=== PATIENT | male | born 1955 | race African-American/Black ===

== ENCOUNTER 2021-04-19 11:56 | Inpatient (IN) | payer OTHER ==
[2021-04-19] VITALS (9 sets, daily range): BP systolic 96–129; BP diastolic 56–87
[~2021-04-19] VITALS: Ht 177.8 cm; Wt 59.0 kg
[2021-04-19 12:35] LABS: HEMATOCRIT. 37.8 % (42.0-52.0); HEMOGLOBIN. 12.2 g/dL (14.0-18.0); MEAN CORPUSCULAR HEMOGLOBIN 29.1 pg (28.0-32.0); MEAN CORPUSCULAR VOLUME 89.8 fL (80.0-94.0); MEAN PLATELET VOLUME 9.8 fl (7.4-10.4); PLATELET 178 x1000/uL (130-400); RED BLOOD CELL COUNT 4.21 mill/uL (4.7-6.1); RED CELL DISTRIBUTION WIDTH 12.8 % (11.6-14.6)
[2021-04-19 12:44] LABS: CHLORIDE 93 mEq/L (98-107)
[2021-04-19 12:49] LABS: ETHANOL BLOOD < 10 mg/dL
[2021-04-19] MEDS ORDERED: SODIUM CHLORIDE 0.9% 1,000 ML IV ONE (13:00)
[2021-04-19] MEDS ORDERED: INSULIN REGULAR (HUMULIN R) 300UNITS/3ML VIAL SUBCUT NR (13:00)
[2021-04-19 13:09] LABS: PLATELET ESTIMATE NORMAL
[2021-04-19] MEDS ORDERED: LEVETIRACETAM 500MG PREMIX 100 ML IV ONE (14:15)
[2021-04-19 14:54] LABS: INR 0.9
[2021-04-19 15:02] LABS: CLARITY URINE CLEAR (CLEAR); COLOR URINE YELLOW (YELLOW); KETONES URINE TRACE (NEGATIVE); LEUKOCYTE ESTERASE URINE NEGATIVE (NEGATIVE); NITRITE URINE NEGATIVE (NEGATIVE); OCCULT BLOOD URINE NEGATIVE (NEGATIVE); PROTEIN URINE NEGATIVE (NEGATIVE); SPECIFIC GRAVITY URINE 1.033 (1.005-1.030); UROBILINOGEN URINE 0.2 E.U./dL (0.2-1.0)
[2021-04-19 15:23] LABS: *BARBITURATES SCREEN URINE NEGATIVE (NEGATIVE); *BENZODIAZEPINES SCREEN URINE NEGATIVE (NEGATIVE); *COCAINE SCREEN URINE PRESUMTIVE POSITIVE (NEGATIVE); METHADONE URINE SCREEN NEGATIVE (NEGATIVE)
[2021-04-19 15:24] LABS: *AMPHETAMINES SCREEN URINE NEGATIVE (NEGATIVE); CANNABINOID URINE SCREEN PRESUMTIVE POSITIVE (NEGATIVE); OPIATES URINE SCREEN NEGATIVE (NEGATIVE); PHENCYCLIDINE URINE SCREEN PRESUMTIVE POSITIVE (NEGATIVE)
[2021-04-19] MEDS ORDERED: SODIUM CHLORIDE 0.9% 1,000 ML IV SCH (16:15)
[2021-04-19] MEDS ORDERED: NICARDIPINE 100 MG in SODIUM CHLORIDE 0.9% 60 ML IV PRN (16:15)
[2021-04-19] MEDS ORDERED: ONDANSETRON HCL 4MG/2ML INJ IV PRN (17:00)
[2021-04-19] MEDS ORDERED: DEXTROSE 50% WATER 50ML SYRINGE IV PRN (17:00)
[2021-04-19] MEDS ORDERED: IPRATROPIUM/ALBUTEROL 0.5-3(2.5)MG/3ML NEB HHN PRN (17:00)
[2021-04-19] MEDS ORDERED: SODIUM CHLORIDE 0.45% 1,000 ML IV SCH (17:00)
[2021-04-19] MEDS: BLOOD SUGAR DIAGNOSTIC STRIP TEST SCH ×5 (17:00→22:15)
[2021-04-19] MEDS ORDERED: INSULIN REGULAR (DRIP) 100 UNITS in SODIUM CHLORIDE 0.9% 100 ML IV SCH (17:00)
[2021-04-19] MEDS ORDERED: ACETAMINOPHEN 325MG TABLET PO PRN ×2 (17:00)
[2021-04-19] MEDS ORDERED: INSULIN REGULAR (DRIP) 100 UNITS in SODIUM CHLORIDE 0.9% 99 ML IV SCH (17:30)
[2021-04-19 17:32] LABS: CREATINE KINASE MB FRACTION 1.2 ng/mL (0.5-3.6)
[2021-04-19] MEDS: SODIUM CHLORIDE 0.9% 1,000 ML IV SCH (21:53)
[2021-04-19] MEDS: INSULIN LISPRO 100 UNITS/ML SUBCUT SCH (22:16)
[2021-04-19] MEDS ORDERED: LEVETIRACETAM 500MG PREMIX 100 ML IV SCH (23:00)
[2021-04-20] VITALS (41 sets, daily range): BP systolic 93–136; BP diastolic 51–86
[2021-04-20 05:49] LABS: BASOPHILS % 1.4 % (0.0-2.0); EOSINOPHILS % 6.3 % (0.0-5.0); HEMATOCRIT. 35.3 % (42.0-52.0); HEMOGLOBIN. 11.7 g/dL (14.0-18.0); LYMPHOCYTES % 23.8 % (20.0-50.0); MEAN CORPUSCULAR HEMOGLOBIN 28.7 pg (28.0-32.0); MEAN CORPUSCULAR VOLUME 86.9 fL (80.0-94.0); MEAN PLATELET VOLUME 10.1 fl (7.4-10.4); MONOCYTES % 8.9 % (2.0-8.0); NEUTROPHILS % 59.6 % (40.0-76.0); PLATELET 173 x1000/uL (130-400); RED BLOOD CELL COUNT 4.06 mill/uL (4.7-6.1); RED CELL DISTRIBUTION WIDTH 12.6 % (11.6-14.6)
[2021-04-20 05:53] LABS: CHLORIDE 107 mEq/L (98-107)
[2021-04-20] MEDS: BLOOD SUGAR DIAGNOSTIC STRIP TEST SCH ×10 (06:16→23:30)
[2021-04-20] MEDS: INSULIN LISPRO 100 UNITS/ML SUBCUT SCH ×2 (06:18→13:24)
[2021-04-20] MEDS ORDERED: BLOOD SUGAR DIAGNOSTIC STRIP TEST SCH ×2 (06:30→16:00)
[2021-04-20] MEDS ORDERED: INSULIN LISPRO 100 UNITS/ML SUBCUT SCH (07:00)
[2021-04-20] MEDS ORDERED: DEXTROSE 50% WATER 50ML SYRINGE IV PRN (07:00)
[2021-04-20] MEDS ORDERED: POTASSIUM CHLORIDE INJ 40 MEQ in DEXT 5% WATER 250 ML IV ONE (09:30)
[2021-04-20] MEDS ORDERED: LIDOCAINE HCL/EPINEPHRINE 1%-EPI 1:100,000 30 ML VIAL INFIL ONE (10:04)
[2021-04-20] MEDS ORDERED: BACITRACIN 15GM TUBE TOP ONE (10:05)
[2021-04-20] MEDS ORDERED: THROMBIN (BOVINE) 5000 UNITS/VIAL TOP ONE (10:05)
[2021-04-20] MEDS ORDERED: GENTAMICIN SULF 40MG/ML 2ML VIAL ONE (10:05)
[2021-04-20] MEDS ORDERED: LACTATED RINGERS 4,000 ML IV ONE (10:05)
[2021-04-20] MEDS: LEVETIRACETAM 500MG PREMIX 100 ML IV SCH ×2 (10:08→21:07)
[2021-04-20] MEDS: KCL 20MEQ/100ML PREMIX 100 ML IV SCH ×2 (10:09→13:24)
[2021-04-20] MEDS ORDERED: FENTANYL CITRATE/PF 50MCG/ML 2ML VIAL ONE (10:40)
[2021-04-20] MEDS ORDERED: NEOSTIGMINE METHYLSULFATE 1MG/ML 10 ML VIAL ONE (10:40)
[2021-04-20] MEDS ORDERED: ROCURONIUM BROMIDE 10MG/ML VIAL 5ML IV ONE (10:40)
[2021-04-20] MEDS ORDERED: PROPOFOL 200MG/20ML VIAL IV ONE (10:41)
[2021-04-20] MEDS ORDERED: GLYCOPYRROLATE 0.2 MG/ML 2ML VIAL ONE (10:41)
[2021-04-20] MEDS ORDERED: MIDAZOLAM HCL 2 MG/2 ML VIAL ONE (10:41)
[2021-04-20] MEDS ORDERED: DEXAMETHASONE 4MG/ML 1ML VIAL ONE (10:42)
[2021-04-20] MEDS ORDERED: ONDANSETRON HCL 4MG/2ML INJ ONE (10:42)
[2021-04-20] MEDS ORDERED: MEPERIDINE HCL/PF 25MG/ML CPJ IV PRN (11:15)
[2021-04-20] MEDS ORDERED: ONDANSETRON HCL 4MG/2ML INJ IV PRN (11:15)
[2021-04-20] MEDS ORDERED: LABETALOL 5MG/ML SYR 20 MG/4 ML SYRINGE IV PRN (11:15)
[2021-04-20] MEDS ORDERED: HYDROMORPHONE HCL/PF 2MG/ML CPJ IV PRN (11:15)
[2021-04-20] MEDS ORDERED: PHENYTOIN SODIUM 250MG/5ML VIAL IV ONE (11:29)
[2021-04-20] MEDS ORDERED: NICARDIPINE 100 MG in SODIUM CHLORIDE 0.9% 60 ML IV PRN (12:00)
[2021-04-20] MEDS ORDERED: MORPHINE SULFATE 4 MG/ML CPJ (NOT FOR IM USE) IV PRN (12:00)
[2021-04-20] MEDS: PHENYTOIN SODIUM 100MG/2ML VIAL IV SCH ×2 (12:12→21:56)
[2021-04-20] MEDS: SODIUM CHLORIDE 0.9% 1,000 ML IV SCH (13:24)
[2021-04-20] MEDS: CEFAZOLIN 1000MG PREMIX 50 ML IV SCH ×2 (13:24→21:55)
[2021-04-20] MEDS ORDERED: CEFAZOLIN SODIUM 1000MG/VIAL IV SCH (14:00)
[2021-04-20] MEDS ORDERED: INSULIN REGULAR (DRIP) 100 UNITS in SODIUM CHLORIDE 0.9% 99 ML IV PRN (14:15)
[2021-04-20] MEDS ORDERED: NALOXONE HCL 0.4MG/ML VIAL IV PRN (14:30)
[2021-04-20] MEDS ORDERED: INSULIN REGULAR (DRIP) 100 UNITS in SODIUM CHLORIDE 0.9% 100 ML IV PRN (15:30)
[2021-04-21] VITALS (91 sets, daily range): BP systolic 91–129; BP diastolic 23–85
[2021-04-21] MEDS: BLOOD SUGAR DIAGNOSTIC STRIP TEST SCH ×8 (00:10→21:00)
[2021-04-21] MEDS: SODIUM CHLORIDE 0.9% 1,000 ML IV SCH ×2 (03:19→13:00)
[2021-04-21] MEDS: CEFAZOLIN 1000MG PREMIX 50 ML IV SCH ×3 (05:33→23:09)
[2021-04-21] MEDS: PHENYTOIN SODIUM 100MG/2ML VIAL IV SCH ×3 (05:33→23:09)
[2021-04-21 07:52] LABS: CHLORIDE 110 mEq/L (98-107)
[2021-04-21 07:53] LABS: HEMATOCRIT. 36.1 % (42.0-52.0); HEMOGLOBIN. 11.7 g/dL (14.0-18.0); MEAN CORPUSCULAR HEMOGLOBIN 28.7 pg (28.0-32.0); MEAN CORPUSCULAR VOLUME 88.4 fL (80.0-94.0); MEAN PLATELET VOLUME 10.3 fl (7.4-10.4); PLATELET 165 x1000/uL (130-400); RED BLOOD CELL COUNT 4.09 mill/uL (4.7-6.1); RED CELL DISTRIBUTION WIDTH 13.1 % (11.6-14.6)
[2021-04-21] MEDS ORDERED: BLOOD SUGAR DIAGNOSTIC STRIP TEST SCH (08:00)
[2021-04-21] MEDS: LEVETIRACETAM 500MG PREMIX 100 ML IV SCH ×2 (08:03→23:08)
[2021-04-21] MEDS: MORPHINE SULFATE 2 MG/ML CPJ (NOT FOR IM USE) IV PRN (08:04)
[2021-04-21] MEDS ORDERED: DEXTROSE 50% WATER 50ML SYRINGE IV PRN (10:45)
[2021-04-21 12:22] LABS: HEPATITIS B SURFACE ANTIGEN NEGATIVE
[2021-04-21] MEDS: INSULIN LISPRO 100 UNITS/ML SUBCUT SCH ×3 (13:00→23:09)
[2021-04-21 13:50] LABS: PLATELET ESTIMATE NORMAL
[2021-04-22] VITALS (82 sets, daily range): BP systolic 72–151; BP diastolic 43–76
[2021-04-22] MEDS: SODIUM CHLORIDE 0.9% 1,000 ML IV SCH ×2 (04:18→19:15)
[2021-04-22 05:56] LABS: BASOPHILS % 0.4 % (0.0-2.0); EOSINOPHILS % 0.6 % (0.0-5.0); HEMATOCRIT. 34.4 % (42.0-52.0); HEMOGLOBIN. 11.5 g/dL (14.0-18.0); LYMPHOCYTES % 8.9 % (20.0-50.0); MEAN CORPUSCULAR HEMOGLOBIN 29.3 pg (28.0-32.0); MEAN CORPUSCULAR VOLUME 87.8 fL (80.0-94.0); MEAN PLATELET VOLUME 10.2 fl (7.4-10.4); MONOCYTES % 14.6 % (2.0-8.0); NEUTROPHILS % 75.5 % (40.0-76.0); PLATELET 159 x1000/uL (130-400); RED BLOOD CELL COUNT 3.92 mill/uL (4.7-6.1); RED CELL DISTRIBUTION WIDTH 12.6 % (11.6-14.6)
[2021-04-22 06:03] LABS: CHLORIDE 107 mEq/L (98-107)
[2021-04-22] MEDS: BLOOD SUGAR DIAGNOSTIC STRIP TEST SCH ×4 (06:05→21:32)
[2021-04-22] MEDS: CEFAZOLIN 1000MG PREMIX 50 ML IV SCH ×2 (06:11→14:37)
[2021-04-22] MEDS: PHENYTOIN SODIUM 100MG/2ML VIAL IV SCH ×3 (06:11→21:36)
[2021-04-22] MEDS: INSULIN LISPRO 100 UNITS/ML SUBCUT SCH ×4 (06:12→21:37)
[2021-04-22] MEDS: LEVETIRACETAM 500MG PREMIX 100 ML IV SCH ×2 (08:15→21:36)
[2021-04-22] MEDS: FOLIC ACID 1MG TABLET PO SCH (08:15)
[2021-04-22] MEDS: THIAMINE HCL 100MG TABLET PO SCH (08:15)
[2021-04-22] MEDS: MORPHINE SULFATE 2 MG/ML CPJ (NOT FOR IM USE) IV PRN (08:17)
[2021-04-22 13:07] LABS: HIV SCREEN 4G Non Reactive (Non Reactive)
[2021-04-22] MEDS ORDERED: INSULIN GLARGINE UD 100 UNITS/ML SYR SUBCUT SCH (22:00)
[2021-04-23] VITALS (39 sets, daily range): BP systolic 96–174; BP diastolic 45–71
[2021-04-23] MEDS: MORPHINE SULFATE 2 MG/ML CPJ (NOT FOR IM USE) IV PRN ×3 (04:37→22:30)
[2021-04-23] MEDS: BLOOD SUGAR DIAGNOSTIC STRIP TEST SCH ×4 (06:01→21:15)
[2021-04-23] MEDS: INSULIN LISPRO 100 UNITS/ML SUBCUT SCH ×4 (06:01→21:26)
[2021-04-23] MEDS: PHENYTOIN SODIUM 100MG/2ML VIAL IV SCH ×3 (06:15→21:25)
[2021-04-23] MEDS: SODIUM CHLORIDE 0.9% 1,000 ML IV SCH ×2 (06:16→19:37)
[2021-04-23 06:28] LABS: CHLORIDE 106 mEq/L (98-107)
[2021-04-23 06:35] LABS: BASOPHILS % 0.4 % (0.0-2.0); EOSINOPHILS % 1.2 % (0.0-5.0); HEMATOCRIT. 32.3 % (42.0-52.0); HEMOGLOBIN. 10.9 g/dL (14.0-18.0); LYMPHOCYTES % 7.1 % (20.0-50.0); MEAN CORPUSCULAR HEMOGLOBIN 29.5 pg (28.0-32.0); MEAN CORPUSCULAR VOLUME 87.5 fL (80.0-94.0); MEAN PLATELET VOLUME 10.2 fl (7.4-10.4); MONOCYTES % 12.2 % (2.0-8.0); NEUTROPHILS % 79.1 % (40.0-76.0); PHOSPHORUS 1.5 mg/dL (2.5-4.9); PLATELET 151 x1000/uL (130-400); RED BLOOD CELL COUNT 3.69 mill/uL (4.7-6.1); RED CELL DISTRIBUTION WIDTH 12.6 % (11.6-14.6)
[2021-04-23] MEDS: THIAMINE HCL 100MG TABLET PO SCH (08:00)
[2021-04-23] MEDS: FOLIC ACID 1MG TABLET PO SCH (08:00)
[2021-04-23] MEDS: LEVETIRACETAM 500MG PREMIX 100 ML IV SCH ×2 (09:11→21:28)
[2021-04-23] MEDS: KCL 20MEQ/100ML PREMIX 100 ML IV SCH ×2 (11:49→13:27)
[2021-04-23] MEDS: MAGNESIUM 2 G PREMIX 50 ML IV NR ×2 (21:24→21:25)
[2021-04-23] MEDS ORDERED: POTASSIUM PHOS,M-BASIC-D-BASIC 20 MMOL in DEXT 5% WATER 243.3333 ML IV NR (22:00)
[2021-04-23] MEDS: INSULIN GLARGINE UD 100 UNITS/ML SYR SUBCUT SCH (23:41)
[2021-04-24] VITALS (44 sets, daily range): BP systolic 91–164; BP diastolic 46–82
[2021-04-24] MEDS: INSULIN LISPRO 100 UNITS/ML SUBCUT SCH ×4 (05:44→22:11)
[2021-04-24] MEDS: BLOOD SUGAR DIAGNOSTIC STRIP TEST SCH ×4 (05:44→20:21)
[2021-04-24] MEDS: PHENYTOIN SODIUM 100MG/2ML VIAL IV SCH ×3 (05:45→22:09)
[2021-04-24 05:56] LABS: BASOPHILS % 0.4 % (0.0-2.0); CHLORIDE 106 mEq/L (98-107); EOSINOPHILS % 3.1 % (0.0-5.0); HEMATOCRIT. 29.2 % (42.0-52.0); HEMOGLOBIN. 9.9 g/dL (14.0-18.0); LYMPHOCYTES % 12.2 % (20.0-50.0); MEAN CORPUSCULAR HEMOGLOBIN 29.5 pg (28.0-32.0); MEAN CORPUSCULAR VOLUME 87.5 fL (80.0-94.0); MEAN PLATELET VOLUME 9.8 fl (7.4-10.4); NEUTROPHILS % 74.3 % (40.0-76.0); PLATELET 151 x1000/uL (130-400); RED BLOOD CELL COUNT 3.33 mill/uL (4.7-6.1); RED CELL DISTRIBUTION WIDTH 12.6 % (11.6-14.6)
[2021-04-24 06:02] LABS: PHOSPHORUS 2.8 mg/dL (2.5-4.9)
[2021-04-24] MEDS: LEVETIRACETAM 500MG PREMIX 100 ML IV SCH ×2 (08:32→20:21)
[2021-04-24] MEDS: THIAMINE HCL 100MG TABLET PO SCH (08:32)
[2021-04-24] MEDS: FOLIC ACID 1MG TABLET PO SCH (08:32)
[2021-04-24] MEDS: SODIUM CHLORIDE 0.9% 1,000 ML IV SCH ×2 (08:32→22:09)
[2021-04-24] MEDS: MORPHINE SULFATE 2 MG/ML CPJ (NOT FOR IM USE) IV PRN ×4 (08:41→18:46)
[2021-04-24] MEDS ORDERED: CLONIDINE 0.1MG TABLET PO PRN ×2 (09:30)
[2021-04-24] MEDS: INSULIN GLARGINE UD 100 UNITS/ML SYR SUBCUT SCH (22:10)
[2021-04-25] VITALS (41 sets, daily range): BP systolic 78–140; BP diastolic 39–79
[2021-04-25 05:27] LABS: BASOPHILS % 0.8 % (0.0-2.0); EOSINOPHILS % 4.2 % (0.0-5.0); HEMOGLOBIN. 9.7 g/dL (14.0-18.0); LYMPHOCYTES % 15.5 % (20.0-50.0); MEAN CORPUSCULAR HEMOGLOBIN 29.7 pg (28.0-32.0); MEAN CORPUSCULAR VOLUME 88.4 fL (80.0-94.0); MEAN PLATELET VOLUME 10.4 fl (7.4-10.4); MONOCYTES % 11.9 % (2.0-8.0); NEUTROPHILS % 67.6 % (40.0-76.0); PLATELET 160 x1000/uL (130-400); RED BLOOD CELL COUNT 3.28 mill/uL (4.7-6.1); RED CELL DISTRIBUTION WIDTH 12.8 % (11.6-14.6)
[2021-04-25 05:41] LABS: CHLORIDE 106 mEq/L (98-107)
[2021-04-25] MEDS: BLOOD SUGAR DIAGNOSTIC STRIP TEST SCH ×4 (05:41→21:00)
[2021-04-25] MEDS: PHENYTOIN SODIUM 100MG/2ML VIAL IV SCH ×3 (05:41→22:07)
[2021-04-25] MEDS: INSULIN LISPRO 100 UNITS/ML SUBCUT SCH ×4 (07:00→22:03)
[2021-04-25] MEDS: LEVETIRACETAM 500MG PREMIX 100 ML IV SCH ×2 (09:00→21:58)
[2021-04-25] MEDS: FOLIC ACID 1MG TABLET PO SCH (09:59)
[2021-04-25] MEDS: THIAMINE HCL 100MG TABLET PO SCH (09:59)
[2021-04-25] MEDS: SODIUM CHLORIDE 0.9% 1,000 ML IV SCH (15:00)
[2021-04-25] MEDS: INSULIN GLARGINE UD 100 UNITS/ML SYR SUBCUT SCH (22:04)
[2021-04-26] VITALS (17 sets, daily range): BP systolic 106–126; BP diastolic 54–78
[2021-04-26] MEDS: SODIUM CHLORIDE 0.9% 1,000 ML IV SCH (00:40)
[2021-04-26] MEDS: BLOOD SUGAR DIAGNOSTIC STRIP TEST SCH ×5 (05:30→21:40)
[2021-04-26] MEDS: PHENYTOIN SODIUM 100MG/2ML VIAL IV SCH ×3 (05:51→22:05)
[2021-04-26] MEDS: INSULIN LISPRO 100 UNITS/ML SUBCUT SCH ×4 (05:53→22:02)
[2021-04-26 06:01] LABS: BASOPHILS % 0.8 % (0.0-2.0); EOSINOPHILS % 4.2 % (0.0-5.0); HEMATOCRIT. 28.4 % (42.0-52.0); HEMOGLOBIN. 9.6 g/dL (14.0-18.0); LYMPHOCYTES % 14.3 % (20.0-50.0); MEAN CORPUSCULAR HEMOGLOBIN 29.6 pg (28.0-32.0); MEAN CORPUSCULAR VOLUME 87.3 fL (80.0-94.0); MEAN PLATELET VOLUME 9.2 fl (7.4-10.4); MONOCYTES % 12.2 % (2.0-8.0); NEUTROPHILS % 68.5 % (40.0-76.0); PLATELET 204 x1000/uL (130-400); RED BLOOD CELL COUNT 3.26 mill/uL (4.7-6.1); RED CELL DISTRIBUTION WIDTH 12.8 % (11.6-14.6)
[2021-04-26 06:04] LABS: CHLORIDE 106 mEq/L (98-107)
[2021-04-26] MEDS: LEVETIRACETAM 500MG PREMIX 100 ML IV SCH ×2 (09:20→22:04)
[2021-04-26] MEDS: THIAMINE HCL 100MG TABLET PO SCH (09:21)
[2021-04-26] MEDS: FOLIC ACID 1MG TABLET PO SCH (09:21)
[2021-04-26] MEDS ORDERED: KCL 10MEQ/50ML PREMIX 50 ML IV NR (16:00)
[2021-04-26] MEDS ORDERED: INSULIN GLARGINE UD 100 UNITS/ML SYR SUBCUT SCH (22:00)
[2021-04-27] VITALS: BP 101/52
[2021-04-27 04:00] VITALS: BP 107/56
[2021-04-27] MEDS: PHENYTOIN SODIUM 100MG/2ML VIAL IV SCH (05:45)
[2021-04-27 06:23] LABS: BASOPHILS % 0.8 % (0.0-2.0); EOSINOPHILS % 4.7 % (0.0-5.0); HEMATOCRIT. 26.1 % (42.0-52.0); HEMOGLOBIN. 9.1 g/dL (14.0-18.0); LYMPHOCYTES % 16.4 % (20.0-50.0); MEAN CORPUSCULAR HEMOGLOBIN 30.5 pg (28.0-32.0); MEAN CORPUSCULAR VOLUME 87.9 fL (80.0-94.0); MEAN PLATELET VOLUME 9.4 fl (7.4-10.4); MONOCYTES % 14.5 % (2.0-8.0); NEUTROPHILS % 63.6 % (40.0-76.0); PLATELET 212 x1000/uL (130-400); RED BLOOD CELL COUNT 2.97 mill/uL (4.7-6.1); RED CELL DISTRIBUTION WIDTH 12.7 % (11.6-14.6)
[2021-04-27 06:38] LABS: CHLORIDE 105 mEq/L (98-107)
[2021-04-27] MEDS: INSULIN LISPRO 100 UNITS/ML SUBCUT SCH ×2 (07:45→12:50)
[2021-04-27] MEDS: BLOOD SUGAR DIAGNOSTIC STRIP TEST SCH ×2 (07:45→12:20)
[2021-04-27 08:00] VITALS: BP 94/49
[2021-04-27] MEDS: FOLIC ACID 1MG TABLET PO SCH (09:33)
[2021-04-27] MEDS: THIAMINE HCL 100MG TABLET PO SCH (09:33)
[2021-04-27] MEDS: LEVETIRACETAM 500MG PREMIX 100 ML IV SCH (09:34)
[2021-04-27] MEDS ORDERED: POTASSIUM CHLORIDE 20MEQ TABLET SR PO NR (11:00)
[2021-04-27] MEDS ORDERED: LEVETIRACETAM 500MG TABLET PO SCH (11:00)
[2021-04-27 12:00] VITALS: BP 111/55
[2021-04-27] MEDS ORDERED: FOLI-43 PO (12:01)
[2021-04-27] MEDS ORDERED: METF-414 MT (12:01)
[2021-04-27] MEDS ORDERED: KEPP500 PO (12:01)
[2021-04-27] MEDS ORDERED: THIA100T72 PO (12:01)
[2021-04-27] MEDS ORDERED: LANTUSUD SUBCUT (12:01)
[2021-04-27] MEDS ORDERED: PHEN100C4 PO (12:01)
[2021-04-27 12:28] VITALS: BP 111/55
[2021-04-27] MEDS ORDERED: PHENYTOIN SODIUM EXTENDED 100MG CAPSULE PO SCH (14:00)
== END 2021-04-27 13:19 | disposition home or self-care (01) | DRG 21 ==
LOC: ER 12:21 → EDBEDREQTM 14:57 → EDBEDREQ 14:57 → ENRESERV 19:07 → MICUNO 20:35 → MICUSO 04-25 19:40 → 6EST 04-26 16:27
PROVIDERS: ADMIT Internal Medicine; ATTEND Internal Medicine
PROC: 00C40ZZ Extirpation of Matter from Intracranial Subdural Space, Open Approach (ICD-10-PCS; principal; 2021-04-23)
PROC: 4A103BD Monitoring of Intracranial Pressure, Percutaneous Approach (ICD-10-PCS; 2021-04-23)
PROC: 00U207Z Supplement Dura Mater with Autologous Tissue Substitute, Open Approach (ICD-10-PCS; 2021-04-23)
PROC: 0NQ00ZZ Repair Skull, Open Approach (ICD-10-PCS; 2021-04-23)
DX: I62.01 Nontraumatic acute subdural hemorrhage (principal); G93.40 Encephalopathy, unspecified; E87.0 Hyperosmolality and hypernatremia; E88.89 Other specified metabolic disorders; K86.89 Other specified diseases of pancreas; D64.9 Anemia, unspecified; E11.65 Type 2 diabetes mellitus with hyperglycemia; E87.6 Hypokalemia; F10.229 Alcohol dependence with intoxication, unspecified; F19.10 Other psychoactive substance abuse, uncomplicated; I10 Essential (primary) hypertension; Z20.822 Contact with and (suspected) exposure to COVID-19; F14.10 Cocaine abuse, uncomplicated; F17.210 Nicotine dependence, cigarettes, uncomplicated; R56.9 Unspecified convulsions; Z79.4 Long term (current) use of insulin; R74.01 Elevation of levels of liver transaminase levels; K70.30 Alcoholic cirrhosis of liver without ascites; K86.9 Disease of pancreas, unspecified
CPT/HCPCS: 36415; 71045; 74176; 76700; 80048; 80053; 80076; 80305; 80320; 81003; 82010; 82550; 82553; 82962; 83036; 83735; 84100; 84484; 85025; 86301; 86705; 86709; 86803; 86850; 86900; 87070; 87075; 87340; 87389; 87426; 88305; 93005; 94640; 97162; 97166; 97530; 97535; 99291; A6261; C1713; C1893; J0690; J1100; J1165; J1580; J1815; J1953; J2250; J2270; J2405; J2704; J2710; J3010; J3475; J3480; J3490; J7030; J7040; J7050; J7060; J7120; G0480